=== PATIENT | female | born 1980 | race Caucasian/White ===

== ENCOUNTER 2024-11-03 19:17 | Inpatient (IN) | payer SELFPAY ==
[~2024-11-03] VITALS: Ht 165.1 cm; Wt 163.6 kg
[2024-11-03 19:19] VITALS: TEMP 97.8
[2024-11-03 21:00] VITALS: PULSE 86; RESP 18
[2024-11-03] MEDS: SODIUM CHLORIDE 0.9% 500ML 500 ML IV STA (21:16)
[2024-11-03] MEDS: KETOROLAC TROMETHAMINE 30 MG/ML VIAL IV ONE (21:17)
[2024-11-03] MEDS: ACETAMINOPHEN 325 MG TAB PO ONE (21:17)
[2024-11-03] MEDS ORDERED: DIPHENHYDRAMINE HCL INJ 50 MG/ML VIAL IV PRN (21:30)
[2024-11-03] MEDS ORDERED: FAMOTIDINE 20 MG TAB PO SCH (21:30)
[2024-11-03] MEDS ORDERED: DEXTROSE 50% SYRINGE 50 ML IV PRN (21:30)
[2024-11-03] MEDS ORDERED: ZOLPIDEM TARTRATE 5 MG TAB PO PRN (21:30)
[2024-11-03] MEDS ORDERED: CLONIDINE HCL 0.2 MG TAB PO PRN (21:30)
[2024-11-03] MEDS: CLONIDINE HCL 0.1 MG TAB PO ONE (22:14)
[2024-11-03 23:20] VITALS: BP 118/73; PULSE 83; RESP 18; TEMP 97.9; O2SAT 98
[2024-11-03 23:30] VITALS: BP 118/73; PULSE 83; RESP 18; TEMP 97.9; O2SAT 98
[2024-11-04] MEDS: FAMOTIDINE 20 MG TAB PO SCH (00:47)
[2024-11-04] MEDS: ACETAMINOPHEN 325 MG TAB PO PRN (00:56)
[2024-11-04] MEDS ORDERED: LOSARTAN POTAS100 MG PO (00:58)
[2024-11-04] MEDS ORDERED: CITALOPRAM HBR40 MG (01:03)
[2024-11-04] MEDS ORDERED: CLONAZEPAM0.5 MG PO (01:03)
[2024-11-04] MEDS ORDERED: GLIMEPIRIDE3 MG (01:03)
[2024-11-04] MEDS ORDERED: ABILIFY5 MG PO (01:03)
[2024-11-04 02:08] LABS: TROPONIN I 0.009 ng/mL (0-0.300)
[2024-11-04 06:43] LABS: CHOL/HDL RATIO 6.8 (3.0-3.6)
[2024-11-04 06:56] LABS: TROPONIN I 0.004 ng/mL (0-0.300)
[2024-11-04] MEDS: ASPIRIN 81 MG CHEW TAB PO ONE (07:43)
[2024-11-04] MEDS: VALSARTAN 160 MG TAB PO SCH (08:36)
[2024-11-04] MEDS: INSULIN REGULAR, HUMAN 100 UNIT/1 ML SQ SCH (08:37)
[2024-11-04 09:14] LABS: BASOPHILS # (AUTO) 0.1 (0.0-0.1); BASOPHILS % 0.7 % (0.0-1.0); EOSINOPHILS # (AUTO) 0.2 (0.0-0.4); EOSINOPHILS % 3.2 % (0.0-6.0); HEMATOCRIT 37.1 % (34.2-44.1); HEMOGLOBIN 12.1 g/dL (12.0-16.0); LYMPHOCYTES # (AUTO) 2.4 (1.0-3.2); LYMPHOCYTES % 33.1 % (18.0-39.1); MEAN CORPUSCULAR HEMOGLOBIN 29.4 pg (28-32); MEAN CORPUSCULAR HGB CONC 32.6 g/dL (31-35); MONOCYTES # (AUTO) 0.5 (0.2-0.8); NEUTROPHILS % 55.6 % (38.7-80.0); PLATELET COUNT 262 x10e3/uL (140-360); RED BLOOD COUNT 4.12 x10e6/uL (3.6-5.1); RED CELL DISTRIBUTION WIDTH 13.5 % (11.7-14.4); WHITE BLOOD COUNT 7.24 x10e3/uL (4.8-10.8)
[2024-11-04 09:19] VITALS: BP 112/69; PULSE 70; RESP 20; TEMP 97.8; O2SAT 98
[2024-11-04 09:31] VITALS: BP 112/69; PULSE 70; RESP 20; TEMP 97.8; O2SAT 98
[2024-11-04 09:38] LABS: ALBUMIN 3.1 g/dL (3.5-5.0); ALBUMIN/GLOBULIN RATIO 0.9 (0.8-2.0); ANION GAP 17.2 mmol/L (8-16); BILIRUBIN,TOTAL 0.8 mg/dL (0.2-1.2); CALCIUM 8.4 mg/dL (8.4-10.2); CREATININE, SERUM 0.75 mg/dL (0.57-1.11); MAGNESIUM 1.7 MG/DL (1.3-2.1); POTASSIUM 4.2 mmol/L (3.5-5.1); TOTAL PROTEIN 6.4 g/dL (6.5-8.1)
[2024-11-04 10:00] LABS: THYROID STIMULATING HORMONE 2.967 uIU/mL (0.350-4.940)
[2024-11-04 14:49] VITALS: BP 133/86; PULSE 79; RESP 20; TEMP 97.7; O2SAT 99
[2024-11-04 17:59] VITALS: BP 143/92; PULSE 63; RESP 20; TEMP 97.8; O2SAT 99
[2024-11-04 20:00] VITALS: BP 144/72; PULSE 77; RESP 18; TEMP 97.7; O2SAT 97
[2024-11-04] MEDS: FUROSEMIDE INJ 10 MG/ML 2 ML VIAL IV SCH (20:58)
[2024-11-04 21:00] VITALS: BP 144/72; PULSE 77; RESP 18; TEMP 97.7; O2SAT 97
[2024-11-04] MEDS ORDERED: IOPAMIDOL 370 MG/ML 100 ML INFUS..BTL INJ ONE (21:54)
[2024-11-05] VITALS: BP 132/73; PULSE 85; RESP 18; TEMP 97.9; O2SAT 98
[2024-11-05 06:05] LABS: BASOPHILS % 0.6 % (0.0-1.0); EOSINOPHILS # (AUTO) 0.2 (0.0-0.4); EOSINOPHILS % 2.6 % (0.0-6.0); HEMATOCRIT 38.8 % (34.2-44.1); HEMOGLOBIN 12.6 g/dL (12.0-16.0); LYMPHOCYTES # (AUTO) 1.9 (1.0-3.2); LYMPHOCYTES % 26.5 % (18.0-39.1); MEAN CORPUSCULAR HEMOGLOBIN 29.4 pg (28-32); MEAN CORPUSCULAR HGB CONC 32.5 g/dL (31-35); MEAN CORPUSCULAR VOLUME 90.4 fL (81-99); MONOCYTES # (AUTO) 0.5 (0.2-0.8); NEUTROPHILS # (AUTO) 4.5 (2.1-6.9); NEUTROPHILS % 62.9 % (38.7-80.0); PLATELET COUNT 239 x10e3/uL (140-360); RED BLOOD COUNT 4.29 x10e6/uL (3.6-5.1); RED CELL DISTRIBUTION WIDTH 13.2 % (11.7-14.4); WHITE BLOOD COUNT 7.17 x10e3/uL (4.8-10.8)
[2024-11-05 06:41] VITALS: BP 116/77; PULSE 71; RESP 19; TEMP 97.5; O2SAT 98
[2024-11-05 06:48] LABS: ALBUMIN 3.5 g/dL (3.5-5.0); ALBUMIN/GLOBULIN RATIO 1.1 (0.8-2.0); ANION GAP 13.9 mmol/L (8-16); BILIRUBIN,TOTAL 0.6 mg/dL (0.2-1.2); CALCIUM 8.9 mg/dL (8.4-10.2); CREATININE, SERUM 0.75 mg/dL (0.57-1.11); MAGNESIUM 1.7 MG/DL (1.3-2.1); POTASSIUM 3.9 mmol/L (3.5-5.1); TOTAL PROTEIN 6.7 g/dL (6.5-8.1)
[2024-11-05 08:00] VITALS: BP 135/85; PULSE 89; RESP 19; TEMP 97.8; O2SAT 100
[2024-11-05 12:00] VITALS: BP 123/77; PULSE 75; RESP 18; TEMP 97.9; O2SAT 98
[2024-11-05] MEDS: KETOROLAC TROMETHAMINE 30 MG/ML VIAL IV PRN (13:30)
[2024-11-05] MEDS ORDERED: ONDANSETRON HCL INJ 2MG/ML 2ML 2 MG/ML VIAL IV PRN (14:00)
[2024-11-05] MEDS: INSULIN REGULAR, HUMAN 100 UNIT/1 ML SQ SCH (16:54)
[2024-11-05] MEDS: NPH, HUMAN INSULIN ISOPHANE 100 UNIT/1 ML 3ML VIAL SQ SCH (16:55)
[2024-11-05 21:00] VITALS: BP 133/85; PULSE 74; RESP 18; TEMP 98.2; O2SAT 99
[2024-11-05 21:20] LABS: BILIRUBIN,URINE NEGATIVE (NEGATIVE); CLARITY,URINE SL CLOUDY (CLEAR); COLOR,URINE YELLOW (YELLOW); GLUCOSE, URINE 500 (NEGATIVE); KETONES,URINE NEGATIVE (NEGATIVE); LEUKOCYTE ESTERASE ,URINE NEGATIVE (NEGATIVE); NITRITE,URINE NEGATIVE (NEGATIVE); PH,URINE 5.5 (5 - 7); PROTEIN,URINE DIPSTICK NEGATIVE (NEGATIVE); URINE UROBILINOGEN 0.2 mg/dL (0.2 - 1)
[2024-11-05 21:37] LABS: AMORPHOUS SEDIMENT,URINE MODERATE; BACTERIA,URINE FEW /HPF; EPITHELIAL CELLS,URINE MODERATE /LPF; WBC,URINE (MAN) 0-5 /HPF (0-5)
[2024-11-05 22:50] VITALS: BP 132/83; PULSE 60; RESP 18; TEMP 98.1; O2SAT 100
[2024-11-06 03:30] VITALS: BP 129/71; PULSE 64; RESP 17; TEMP 97.8; O2SAT 96
[2024-11-06 06:26] LABS: BASOPHILS % 0.5 % (0.0-1.0); EOSINOPHILS # (AUTO) 0.2 (0.0-0.4); EOSINOPHILS % 3.2 % (0.0-6.0); HEMATOCRIT 38.2 % (34.2-44.1); HEMOGLOBIN 12.8 g/dL (12.0-16.0); LYMPHOCYTES # (AUTO) 1.9 (1.0-3.2); LYMPHOCYTES % 25.8 % (18.0-39.1); MEAN CORPUSCULAR HEMOGLOBIN 29.5 pg (28-32); MEAN CORPUSCULAR HGB CONC 33.5 g/dL (31-35); MONOCYTES # (AUTO) 0.6 (0.2-0.8); MONOCYTES % 7.5 % (4.4-11.3); NEUTROPHILS # (AUTO) 4.7 (2.1-6.9); NEUTROPHILS % 62.7 % (38.7-80.0); PLATELET COUNT 239 x10e3/uL (140-360); RED BLOOD COUNT 4.34 x10e6/uL (3.6-5.1); RED CELL DISTRIBUTION WIDTH 13.2 % (11.7-14.4); WHITE BLOOD COUNT 7.51 x10e3/uL (4.8-10.8)
[2024-11-06 06:55] LABS: ALBUMIN 3.3 g/dL (3.5-5.0); ANION GAP 14.6 mmol/L (8-16); BILIRUBIN,TOTAL 0.9 mg/dL (0.2-1.2); CALCIUM 8.7 mg/dL (8.4-10.2); CREATININE, SERUM 0.77 mg/dL (0.57-1.11); MAGNESIUM 1.7 MG/DL (1.3-2.1); POTASSIUM 3.6 mmol/L (3.5-5.1); TOTAL PROTEIN 6.6 g/dL (6.5-8.1)
[2024-11-06 08:00] VITALS: BP 125/61; PULSE 87; RESP 17; TEMP 97.8; O2SAT 97
[2024-11-06] MEDS: METOPROLOL SUCCINATE 50 MG TAB XL PO SCH (09:25)
[2024-11-06 12:00] VITALS: BP 114/69; PULSE 72; RESP 17; TEMP 97.7; O2SAT 98
[2024-11-06 16:00] VITALS: BP 126/75; PULSE 65; RESP 18; TEMP 98.2; O2SAT 99
== END 2024-11-06 17:29 | disposition home or self-care (01) | DRG 309 ==
LOC: FSED 19:23 → ERHOLD 22:03 → MED/SURG2 22:47 → OBSVTOIN 11-05 14:05
PROVIDERS: ADMIT Internal Medicine; ATTEND Internal Medicine
DX: R00.2 Palpitations (principal); Z68.44 Body mass index [BMI] 60.0-69.9, adult; E66.01 Morbid (severe) obesity due to excess calories; E11.65 Type 2 diabetes mellitus with hyperglycemia; I10 Essential (primary) hypertension; E78.5 Hyperlipidemia, unspecified; E78.2 Mixed hyperlipidemia; R07.89 Other chest pain; R10.13 Epigastric pain; R06.02 Shortness of breath; R11.0 Nausea; R14.0 Abdominal distension (gaseous); R53.81 Other malaise; R19.7 Diarrhea, unspecified; G47.33 Obstructive sleep apnea (adult) (pediatric); F33.41 Major depressive disorder, recurrent, in partial remission; Z79.84 Long term (current) use of oral hypoglycemic drugs; Z82.49 Family history of ischemic heart disease and other diseases of the circulatory system
CPT/HCPCS: 36415; 71046; 71260; 76700; 80053; 80061; 81001; 81003; 81025; 82550; 82948; 83036; 83690; 83735; 83880; 84443; 84484; 85025; 85379; 93005; 93306; 93970; 96372; 99284; G0378; J1885; J1938; J2470; J7040; Q9967